=== PATIENT | male | born 1970 | race Caucasian/White ===

== ENCOUNTER 2019-12-14 16:43 | Outpatient (CLI) | payer OTHER, SELFPAY ==
--- NOTE | ~2019-12-14 | XR_ITS ---
EXAMINATION: XR hip LT 2V w AP pelvis EXAM DATE: 12/14/2019 17:10 INDICATION: Initial encounter following injury, with pain of the left hip. Multiple falls. TECHNIQUE: Left hip frontal, 'frog leg' projections for interpretation. Frontal projection pelvis. There is no prior study for comparison. FINDINGS: Smooth left hip femoral head contour, no radiographic evidence of avascular necrosis. Ther e is mild symmetric bilateral hip primary osteoarthritis. There are no acute pelvic or left hip fract ures or dislocations identified. There is no subcutaneous gas. The soft tissue is unremarkable. T here are no radiopaque foreign bodies. IMPRESSION: 1. Pelvis, left hip exam without acute osseous findings. 2. Mild symmetric bilateral hip osteoarthritis. Reviewed, dictated and finalized at location A.
== END 2019-12-14 16:44 | disposition home or self-care (01) ==
LOC: CHSIMG 16:49
PROVIDERS: PCP Family Medicine; Visit Provider Family Medicine
DX: M25.552 Pain in left hip (principal)
CPT/HCPCS: 73502

== ENCOUNTER 2020-02-29 08:29 | Outpatient (CLI) | payer OTHER, SELFPAY ==
[2020-02-29 08:41] LABS: Basophils Absolute Auto 0.05 K/mm3 (0.00-0.10); Basophils Percent Auto 0.6 % (0.0-1.0); Eosinophils Absolute Auto 0.35 K/mm3 (0.02-0.50); Eosinophils Percent Auto 3.9 % (1.0-6.0); Hematocrit 43.1 % (40.0-54.0); Hemoglobin 13.9 g/dL (14.0-18.0); Immature Granulocyte Absolute 0.07 K/mm3 (0.00-0.00); Immature Granulocyte Percent A 0.8 % (0.0-0.0); Lymphocytes Absolute Auto 2.63 K/mm3 (1.10-4.50); Lymphocytes Percent Auto 29.2 % (18.0-42.0); Mean Corpuscular HGB Conc 32.3 g/dL (32.0-36.0); Mean Corpuscular Hemoglobin 26.9 pg (27.0-31.0); Mean Corpuscular Volume 83.4 fL (78.0-102.0); Mean Platelet Volume 9.4 fl (8.7-11.0); Monocytes Absolute Auto 0.83 K/mm3 (0.10-0.90); Monocytes Percent Auto 9.2 % (2.0-11.0); Neutrophils Absolute Auto 5.1 K/mm3 (1.7-7.2); Neutrophils Percent Auto 56.3 % (50.0-70.0); Platelet Count Result 230 K/mm3 (150-420); Red Blood Count 5.17 M/mm3 (4.70-6.10); Red Cell Distribution Width 13.2 % (11.6-14.4)
[2020-02-29 08:59] LABS: Hemoglobin A1C 8.2 % (<5.7)
[2020-02-29 09:41] LABS: Anion Gap 10 mmol/L (8-16); Blood Urea Nitrogen 26 mg/dL (7-18); Calcium 9.3 mg/dL (8.5-10.1); Carbon Dioxide 24 mmol/L (21-32); Chloride 105 mmol/L (98-108); Estimated Glomerular Filt Rate > 60; Glucose 119 mg/dL (70-99); Osmolality Calculated 293 mOsm/kg (285-295); Potassium 4.3 mmol/L (3.5-5.1); Sodium 139 mmol/L (136-145)
== END 2020-02-29 08:30 | disposition home or self-care (01) ==
LOC: CHSLAB 08:31
PROVIDERS: PCP Family Medicine; Visit Provider Family Medicine
DX: E11.40 Type 2 diabetes mellitus with diabetic neuropathy, unspecified (principal)
CPT/HCPCS: 36415; 80048; 83036; 85025

== ENCOUNTER 2020-06-27 08:13 | Outpatient (CLI) | payer OTHER, SELFPAY ==
[2020-06-27 08:36] LABS: Hemoglobin A1C 7.7 % (<5.7)
[2020-06-27 09:21] LABS: Anion Gap 12 mmol/L (8-16); Blood Urea Nitrogen 23 mg/dL (7-18); Calcium 9.1 mg/dL (8.5-10.1); Carbon Dioxide 26 mmol/L (21-32); Chloride 100 mmol/L (98-108); Estimated Glomerular Filt Rate 57; Glucose 216 mg/dL (70-99); Osmolality Calculated 296 mOsm/kg (285-295); Sodium 138 mmol/L (136-145)
== END 2020-06-27 08:14 | disposition home or self-care (01) ==
LOC: CHSLAB 08:15
PROVIDERS: PCP Family Medicine; Visit Provider Family Medicine
DX: E11.9 Type 2 diabetes mellitus without complications (principal)
CPT/HCPCS: 36415; 80048; 83036

== ENCOUNTER 2020-06-28 15:58 | Outpatient (CLI) | payer OTHER, SELFPAY ==
[2020-06-28 17:19] LABS: Erythrocyte Sedimentation Rate 8 mm/hr (0-20)
[2020-06-28 17:20] LABS: CRP < 0.2 mg/dL (0.0-0.9)
[2020-06-28 17:40] LABS: Rheumatoid Factor Screen Negative (Negative)
[2020-07-03 10:56] LABS: ANA Cascade Screen Negative (Negative)
== END 2020-06-28 15:59 | disposition home or self-care (01) ==
LOC: CHSLAB 15:59
PROVIDERS: PCP Family Medicine; Visit Provider Family Medicine
DX: M13.0 Polyarthritis, unspecified (principal)
CPT/HCPCS: 36415; 85652; 86038; 86140; 86430

== ENCOUNTER 2020-10-05 08:02 | Outpatient (CLI) | payer OTHER, SELFPAY ==
[2020-10-05 08:16] LABS: Basophils Absolute Auto 0.06 K/mm3 (0.00-0.10); Basophils Percent Auto 0.7 % (0.0-1.0); Eosinophils Absolute Auto 0.45 K/mm3 (0.02-0.50); Eosinophils Percent Auto 5.6 % (1.0-6.0); Hematocrit 46.4 % (40.0-54.0); Hemoglobin 15.2 g/dL (14.0-18.0); Immature Granulocyte Absolute 0.08 K/mm3 (0.00-0.00); Lymphocytes Absolute Auto 2.51 K/mm3 (1.10-4.50); Lymphocytes Percent Auto 31.3 % (18.0-42.0); Mean Corpuscular HGB Conc 32.8 g/dL (32.0-36.0); Mean Corpuscular Hemoglobin 27.8 pg (27.0-31.0); Mean Platelet Volume 9.2 fl (8.7-11.0); Monocytes Absolute Auto 0.65 K/mm3 (0.10-0.90); Monocytes Percent Auto 8.1 % (2.0-11.0); Neutrophils Absolute Auto 4.3 K/mm3 (1.7-7.2); Neutrophils Percent Auto 53.3 % (50.0-70.0); Platelet Count Result 214 K/mm3 (150-420); Red Blood Count 5.46 M/mm3 (4.70-6.10); Red Cell Distribution Width 13.3 % (11.6-14.4)
[2020-10-05 08:26] LABS: Creatinine Urine 65.48 mg/dL (40-278); Hemoglobin A1C 8.2 % (<5.7); MALB Creatinine Ratio 19.8 mg/g (0-30); Microalbumin Urine Random < 13.0 mg/L
[2020-10-05 09:03] LABS: Alanine Aminotransferase 37 U/L (16-63); Alkaline Phosphatase 150 U/L (46-116); Anion Gap 11 mmol/L (8-16); Aspartate Amino Transferase 18 U/L (15-37); Bilirubin,Total 0.4 mg/dL (0.00-1.00); Blood Urea Nitrogen 17 mg/dL (7-18); Calcium 8.9 mg/dL (8.5-10.1); Carbon Dioxide 27 mmol/L (21-32); Chloride 100 mmol/L (98-108); Estimated Glomerular Filt Rate > 60; Glucose 209 mg/dL (70-99); Osmolality Calculated 293 mOsm/kg (285-295); Potassium 4.3 mmol/L (3.5-5.1); Sodium 138 mmol/L (136-145); Thyroid Stimulating Hormone 1.01 uIU/mL (0.36-3.74); Total Protein 7.1 g/dL (6.4-8.2)
== END 2020-10-05 08:03 | disposition home or self-care (01) ==
LOC: CHSLAB 08:04
PROVIDERS: PCP Family Medicine; Visit Provider Family Medicine
DX: E11.9 Type 2 diabetes mellitus without complications (principal)
CPT/HCPCS: 36415; 80053; 82043; 83036; 84443; 85025

== ENCOUNTER 2020-12-20 11:31 | Outpatient (CLI) | payer OTHER, SELFPAY | END 2020-12-20 11:32 | disposition home or self-care (01) | LOC: CHSLAB 11:34 | PROVIDERS: PCP Family Medicine; Visit Provider Family Medicine | DX: R21 Rash and other nonspecific skin eruption (principal) | CPT/HCPCS: 87077; 87101 ==

== ENCOUNTER 2021-01-30 08:53 | Outpatient (CLI) | payer OTHER, SELFPAY ==
[2021-01-30 09:07] LABS: Basophils Absolute Auto 0.03 K/mm3 (0.00-0.10); Basophils Percent Auto 0.4 % (0.0-1.0); Eosinophils Absolute Auto 0.43 K/mm3 (0.02-0.50); Eosinophils Percent Auto 5.6 % (1.0-6.0); Hematocrit 41.8 % (40.0-54.0); Hemoglobin 14.1 g/dL (14.0-18.0); Immature Granulocyte Absolute 0.05 K/mm3 (0.00-0.00); Immature Granulocyte Percent A 0.7 % (0.0-0.0); Lymphocytes Absolute Auto 2.41 K/mm3 (1.10-4.50); Lymphocytes Percent Auto 31.4 % (18.0-42.0); Mean Corpuscular HGB Conc 33.7 g/dL (32.0-36.0); Mean Corpuscular Hemoglobin 28.5 pg (27.0-31.0); Mean Corpuscular Volume 84.6 fL (78.0-102.0); Mean Platelet Volume 8.9 fl (8.7-11.0); Monocytes Absolute Auto 0.58 K/mm3 (0.10-0.90); Monocytes Percent Auto 7.6 % (2.0-11.0); Neutrophils Absolute Auto 4.2 K/mm3 (1.7-7.2); Neutrophils Percent Auto 54.3 % (50.0-70.0); Platelet Count Result 170 K/mm3 (150-420); Red Blood Count 4.94 M/mm3 (4.70-6.10); Red Cell Distribution Width 13.2 % (11.6-14.4); White Blood Count 7.7 K/mm3 (4.8-10.8)
[2021-01-30 09:32] LABS: Hemoglobin A1C 7.9 % (<5.7)
[2021-01-30 11:38] LABS: Anion Gap 11 mmol/L (8-16); Blood Urea Nitrogen 20 mg/dL (7-18); Calcium 8.9 mg/dL (8.5-10.1); Carbon Dioxide 25 mmol/L (21-32); Chloride 104 mmol/L (98-108); Cholesterol 129 mg/dL (0-200); Estimated Glomerular Filt Rate > 60; Glucose 173 mg/dL (70-99); HDL Direct 39 mg/dL (40-60); LDL Cholesterol Calculated 52 mg/dL (<130); Osmolality Calculated 296 mOsm/kg (285-295); Potassium 4.4 mmol/L (3.5-5.1); Prostate Specific Antigen 1.1 ng/mL (< OR = 4.0); Sodium 140 mmol/L (136-145); Thyroid Stimulating Hormone 0.95 uIU/mL (0.36-3.74); Triglycerides 190 mg/dL (0-150)
== END 2021-01-30 08:54 | disposition home or self-care (01) ==
LOC: CHSLAB 08:55
PROVIDERS: PCP Family Medicine; Visit Provider Family Medicine
DX: E11.40 Type 2 diabetes mellitus with diabetic neuropathy, unspecified (principal); E78.2 Mixed hyperlipidemia; Z12.5 Encounter for screening for malignant neoplasm of prostate
CPT/HCPCS: 36415; 80048; 80061; 83036; 84153; 84443; 85025; G0103

== ENCOUNTER 2021-02-04 09:17 | Outpatient (CLI) | payer OTHER, SELFPAY ==
--- NOTE | ~2021-02-04 | US_ITS ---
EXAMINATION: US scrotum doppler DATE: 02/04/2021 09:47 INDICATION: Scrotal varices TECHNIQUE: Testicular sonogram utilizing grayscale and Doppler COMPARISON: None. FINDINGS: The right testis measures 3.9 x 2.2 x 2.3 cm. The left testis measures 3.1 x 2.2 x 3.0 cm. There is normal vascular flow to both testes. The right epididymis is normal with normal vascular lucina w. The left epididymis is normal with normal vascular flow. There are bilateral varicoceles, left gre ater than right. IMPRESSION: 1. Bilateral varicoceles, left greater than right. Reviewed, dictated and finalized at location B.
== END 2021-02-04 09:18 | disposition home or self-care (01) ==
LOC: CHSIMG 09:18
PROVIDERS: PCP Family Medicine; Visit Provider Family Medicine
DX: I86.1 Scrotal varices (principal)
CPT/HCPCS: 76870; 93976

== ENCOUNTER 2021-03-04 14:28 | Outpatient (CLI) | payer OTHER, SELFPAY ==
[2021-03-04 14:47] LABS: Basophils Absolute Auto 0.05 K/mm3 (0.00-0.10); Basophils Percent Auto 0.5 % (0.0-1.0); Eosinophils Absolute Auto 0.48 K/mm3 (0.02-0.50); Eosinophils Percent Auto 5.2 % (1.0-6.0); Hematocrit 44.2 % (40.0-54.0); Hemoglobin 14.8 g/dL (14.0-18.0); Immature Granulocyte Absolute 0.06 K/mm3 (0.00-0.00); Immature Granulocyte Percent A 0.6 % (0.0-0.0); Lymphocytes Absolute Auto 3.13 K/mm3 (1.10-4.50); Lymphocytes Percent Auto 33.7 % (18.0-42.0); Mean Corpuscular HGB Conc 33.5 g/dL (32.0-36.0); Mean Corpuscular Hemoglobin 28.7 pg (27.0-31.0); Mean Corpuscular Volume 85.8 fL (78.0-102.0); Mean Platelet Volume 9.4 fl (8.7-11.0); Monocytes Absolute Auto 0.67 K/mm3 (0.10-0.90); Monocytes Percent Auto 7.2 % (2.0-11.0); Neutrophils Absolute Auto 4.9 K/mm3 (1.7-7.2); Neutrophils Percent Auto 52.8 % (50.0-70.0); Platelet Count Result 189 K/mm3 (150-420); Red Blood Count 5.15 M/mm3 (4.70-6.10); Red Cell Distribution Width 13.1 % (11.6-14.4); White Blood Count 9.3 K/mm3 (4.8-10.8)
[2021-03-04 15:01] LABS: Add Urine Microscopic? YES; Appearance Urine Clear (Clear); Bilirubin Urine Negative (Negative); Blood Urine Negative (Negative); Color Urine Light Yellow (Yellow); Glucose Urine UA 3+ (Negative); Ketones Urine Negative (Negative); Leukocyte Esterase Ur Negative (Negative); Nitrate Urine Negative (Negative); Protein Urine Negative (Negative); Specific Grav Ur 1.015 (1.010-1.020); Urobilinogen Urine 0.2 mg/dL (0.2-1.0)
[2021-03-04 15:04] LABS: Alanine Aminotransferase 41 U/L (16-63); Albumin Level 4.4 g/dL (3.4-5.0); Alkaline Phosphatase 135 U/L (46-116); Anion Gap 12 mmol/L (8-16); Aspartate Amino Transferase 20 U/L (15-37); Bilirubin,Total 0.5 mg/dL (0.00-1.00); Blood Urea Nitrogen 22 mg/dL (7-18); Calcium 9.6 mg/dL (8.5-10.1); Carbon Dioxide 25 mmol/L (21-32); Chloride 104 mmol/L (98-108); Estimated Glomerular Filt Rate > 60; Glucose 167 mg/dL (70-99); Osmolality Calculated 299 mOsm/kg (285-295); Potassium 4.2 mmol/L (3.5-5.1); Sodium 141 mmol/L (136-145); Total Protein 7.4 g/dL (6.4-8.2)
[2021-03-04 15:11] LABS: Bacteria Urine Trace /hpf; RBC Urine 0-2 /hpf (0-2); Squamous Epithelial Cell Urine None seen /hpf (Few); WBC Urine 0-3 /hpf (0-3)
== END 2021-03-04 14:29 | disposition home or self-care (01) ==
LOC: CHSLAB 14:30
PROVIDERS: PCP Family Medicine; Visit Provider Family Medicine
DX: E11.9 Type 2 diabetes mellitus without complications (principal); I86.1 Scrotal varices
CPT/HCPCS: 36415; 80053; 81001; 85025; 87086; 87088

== ENCOUNTER 2021-05-21 07:56 | Outpatient (CLI) | payer OTHER, SELFPAY ==
[2021-05-21 08:23] LABS: Hemoglobin A1C 8.6 % (<5.7)
[2021-05-21 08:45] LABS: Alanine Aminotransferase 42 U/L (16-63); Albumin Level 3.8 g/dL (3.4-5.0); Alkaline Phosphatase 145 U/L (46-116); Anion Gap 11 mmol/L (8-16); Aspartate Amino Transferase 21 U/L (15-37); Bilirubin,Total 0.4 mg/dL (0.00-1.00); Blood Urea Nitrogen 25 mg/dL (7-18); Calcium 9.2 mg/dL (8.5-10.1); Carbon Dioxide 26 mmol/L (21-32); Chloride 102 mmol/L (98-108); Estimated Glomerular Filt Rate 54; Glucose 214 mg/dL (70-99); Osmolality Calculated 298 mOsm/kg (285-295); Potassium 4.3 mmol/L (3.5-5.1); Sodium 139 mmol/L (136-145); Total Protein 6.6 g/dL (6.4-8.2)
== END 2021-05-21 07:57 | disposition home or self-care (01) ==
LOC: CHSLAB 07:58
PROVIDERS: PCP Family Medicine; Visit Provider Family Medicine
DX: E11.40 Type 2 diabetes mellitus with diabetic neuropathy, unspecified (principal); E78.2 Mixed hyperlipidemia
CPT/HCPCS: 36415; 80053; 83036

== ENCOUNTER 2021-05-27 08:16 | Outpatient (CLI) | payer OTHER, SELFPAY ==
--- NOTE | 2021-05-27 09:15 | EST_ITS ---
Patient Info Name: Marvin Leggett Age: 50 years : 1970 Gender: Male Ht: 69 in Wt: 272 lbs BSA: 2.51 m2 HR: 98 bpm BP: 104 / 68 mmHg Heart Rhythm: Sinus Rhythm Technical Quality: Excellent Exam Date: 05/27/2021 9:04 AM Exam Location: [facility] Patient Status: Outpatient Admit Date: 05/27/2021 Staff Ordering Physician: Car Tavares MD Attending Provider: Car Tavares MD Exercise Technologist: Ninoska Tipton CRT Exercise Physician: Cherri Baird CEP Exam Type: CA stress kiel w NM Study Info Indications CP - A nuclear stress test was performed. History/Risk Factors Hypertension: Yes Dyslipidemia: Yes Diabetes Mellitus: Yes History/Risk Factors CP. HTN. DIABETES. DYSLIPIDEMIA. Summary 1. 1. Negative lexiscan stress test for ischemic ST changes by ECG criteria. 2. 2. Stable hemodynamics throughout the test. 3. 3. Nuclear scan to follow and will be reported separately. Please correlate with it. Protocol: LEXISCAN Stress ECG Details Stage: REST Duration (min): 1 min : 57 sec HR (bpm): 88 SBP (mmHg): 104 DBP (mmHg): 68 Stage: REST Duration (min): 10 min : 16 sec HR (bpm): 88 SBP (mmHg): 104 DBP (mmHg): 68 Stage: STAGE 1 Duration (min): 0 min : 7 sec HR (bpm): 88 SBP (mmHg): 104 DBP (mmHg): 68 Stage: RECOVERY Duration (min): 0 min : 52 sec HR (bpm): 97 SBP (mmHg): 104 DBP (mmHg): 68 Stage: RECOVERY Duration (min): 1 min : 52 sec HR (bpm): 94 SBP (mmHg): 119 DBP (mmHg): 69 Stage: RECOVERY Duration (min): 2 min : 52 sec HR (bpm): 93 SBP (mmHg): 118 DBP (mmHg): 67 Stage: RECOVERY Duration (min): 3 min : 52 sec HR (bpm): 93 SBP (mmHg): 117 DBP (mmHg): 67 Stage: RECOVERY Duration (min): 4 min : 52 sec HR (bpm): 92 SBP (mmHg): 120 DBP (mmHg): 72 Stage: RECOVERY Duration (min): 5 min : 52 sec HR (bpm): 93 SBP (mmHg): 118 DBP (mmHg): 72 Stage: RECOVERY Duration (min): 6 min : 4 sec HR (bpm): 92 SBP (mmHg): 118 DBP (mmHg): 72 Rest HR: 88 bpm Peak HR: 97 bpm Rest Sys BP: 104 mmHg Peak Sys BP: 120 mmHg Max Pred HR: 168 bpm % Max Pred HR: 58 % Target HR: 143 bpm Max RPP: 11,640 bpm*mmHg Target HR Summary: Pt. reached 67% THR BP Response: Normal blood pressure response Termination Reason: Completed Protocol Cardiac Symptoms: Dyspnea Total Time: 0 min : 7 sec Rest Sousa BP: 68 mmHg Peak Sousa BP: 72 mmHg Total Dose: 0.4 mg Resting ECG Sinus rhythm, IRBBB, low voltage- precordial leads. Stress ECG No ST changes. Arrhythmias None. Report Signatures
--- NOTE | 2021-05-27 11:35 | WPDCARIOSTRE ---
Nuclear Stress Test INDICATIONS Indications: Chest pain PROCEDURE Procedure Performed: Myocardial Perf Spect-Multi Procedure: Patient underwent a lexiscan stress test and immediately was injected with 34.5 mCi of cardiolyte. Multiple tomographic images were obtained. These are of suboptimal quality. There is evidence of moderate size, moderate severity inferior perfusion defect noted with stress imaging. A separate resting images were obtained after patient was injected with 10.5 mCi of cardiolyte. Multiple tomographic images were obtained. These are of suboptimal quality. There is perfusion defects noted with rest imaging. CONCLUSION Conclusion: 1. Abnormal myocardial perfusion imaging demonstrating moderate size, moderate severity inferior perfusion defect during stress imaging suggestive of reversible ischemia. 2. Left ventriculogram demonstrates normal ejection fraction measured at 63%. No wall motion abnormalities. 3. TID score is normal at 1.03.
== END 2021-05-27 08:17 | disposition home or self-care (01) ==
LOC: CHSIMG 08:19
PROVIDERS: PCP Family Medicine; Visit Provider Family Medicine
DX: Z01.818 Encounter for other preprocedural examination (principal)
CPT/HCPCS: 78452; 93017; A9502; J2785